=== PATIENT | female | born 1970 | race African-American/Black ===

== ENCOUNTER 2020-10-20 21:21 | Emergency (ER) | payer OTHER ==
--- NOTE | 2020-10-20 21:46 | EDM.PDOC ---
ED HPI GENERAL MEDICAL PROBLEM - General Chief Complaint: Upper Extremity Injury/Pain Stated Complaint: INJURED PINKY FINGER ON RIGHT HAND Time Seen by Provider: 10/20/20 21:32 Source of Information: Reports: Patient History Limitations: Reports: No Limitations - History of Present Illness INITIAL COMMENTS - FREE TEXT/NARRATIVE: Mrs. Norman is a very pleasant 50-year-old woman who now presents to the ED after her right fifth finger was crushed in a bar glass doorway that she was closing while at work around 20:45 tonight. She has pain and swelling to the finger. She denies a prior right fifth finger injury. She is otherwise uninjured. The patient placed her finger in an ice pack prior to coming to the ED, but did not take any hits-nyf-[id number] medications. Here in the ED, the patient's initial BP is found to be slightly elevated at 142/93, otherwise, she is hemodynamically stable, afebrile, saturating 100% on room air. Other than sarah's right fifth finger injury, the patient denies having a recent fever, chills, sore throat, ear pain, nasal or sinus congestion, cough, dyspnea, chest pain, palpitations, nausea, vomiting, constipation, diarrhea, abdominal pain, urinary symptoms, recent weight gain or weight loss, recent bloody bowel movements or black bowel movements, recent joint aches, headaches, or rashes. The patient's PCP is Claudia Hartman NP. She has not received an influenza vaccine this season, and declined an offer to receive one here in the ED. 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 ED EXAM, GENERAL - Physical Exam Exam: See Below Exam Limited By: No Limitations General Appearance: Alert, WD/WN, No Apparent Distress Extremities: Other (There is modest swelling to the right fifth finger, primarily to the radial aspect of the PIP joint, although there is mild swelling to the finger distal to the PIP joint, as well. No significant tenderness to palpation. The patient is able to flex and extend the finger fully, with good strength. Neurovascular status of the right upper extremity is intact.) Course - Vital Signs Last Recorded V/S: Last Vital Signs Temp 36.3 C 10/20/20 21:29 Pulse 83 10/20/20 21:29 Resp 20 10/20/20 21:29 BP 142/93 H 10/20/20 21:29 Pulse Ox 100 10/20/20 21:29 - Orders/Labs/Meds Orders: Active Orders 24 hr Category Date Time Status Fingers Fifth Digit Rt F9 [CR] Stat Exams 10/20/20 21:40 Taken - Re-Assessments/Exams Free Text/Narrative Re-Assessment/Exam: 10/20/20 21:41 As above, the patient's right fifth finger was crushed in a bar glass doorway around 20:45 tonight. She presents with swelling and pain primarily to the PIP joint, although some pain to the distal finger, as well. Good strength to both flexion and extension of the finger. My suspicion for fracture is low, but I have ordered x-rays to be certain. The patient declined an offer for pain medication. 10/20/20 22:31 3-view radiographs of the right (note that the radiographs are marked as left) fifth finger appear to be grossly normal, with no fracture or dislocation identified. Formal read per the Radiologist pending. 10/20/20 22:37 X-ray results discussed with the patient and her . The patient confirmed that it was her right hand that was x-rayed. Since there is no fracture, she does not need the finger to be splinted. I am recommending ice and ibuprofen. I will write a note for her to have limited use of her left hand the next few days. Departure - Departure Time of Disposition: 22:39 Disposition: Home, Self-Care 01 Condition: Good Clinical Impression: Contusion of right little finger - Discharge Information *PRESCRIPTION DRUG MONITORING PROGRAM REVIEWED*: Not Applicable *COPY OF PRESCRIPTION DRUG MONITORING REPORT IN PATIENT GUS: Not Applicable Referrals: Claudia Hartman NP [Primary Care Provider] - Forms: ED Department Discharge, ED Return to Work/School Form Additional Instructions: You were seen in the emergency room after your right pinky finger got slammed in a glass case door at work. Work-up in the ER included x-rays of your right pinky finger, which returned normal, with no broken bones or dislocations seen. Based on your history, physical exam, and ER x-rays, you have most likely c ontused (bruised) your right pinky finger. We recommend that you apply an ice pack to your right pinky finger for 10 to 15 minutes, 5 times a day, for the next few days, to help minimize swelling. You may take [id number] ibuprofen, 2 to 3 tablets (400 to 600 mg) up to every 8 hours, with food, as needed for discomfort. A note for work to have limited use of your right hand has been provided to you. If any other problems, please do not hesitate to return to the ER. Sepsis Event Note (ED) - Evaluation Sepsis Screening Result: No Definite Risk - Focused Exam Vital Signs: Vital Signs Temp Pulse Resp BP Pulse Ox 10/20/20 21:29 36.3 C 83 20 142/93 H 100 - My Orders Last 24 Hours: My Active Orders 10/20/20 21:40 Fingers Fifth Digit Rt F9 [CR] Stat - Assessment/Plan Last 24 Hours: My Active Orders 10/20/20 21:40 Fingers Fifth Digit Rt F9 [CR] Stat
--- NOTE | 2020-10-21 10:23 | CR ---
Left fifth finger: 3 views of the left fifth finger were obtained. Comparison: No previous study. Joint spaces are fairly well maintained. No acute fracture, dislocation or other bony abnormality is appreciated. Impression: 1. No acute osseous finding is seen on left fifth finger study. Diagnostic code #1
== END 2020-10-20 22:48 | disposition home or self-care (01) ==
LOC: JD.ED 21:21
DX: S60.051A Contusion of right little finger without damage to nail, initial encounter (principal); E03.9 Hypothyroidism, unspecified; Z79.899 Other long term (current) drug therapy; W23.0XXA Caught, crushed, jammed, or pinched between moving objects, initial encounter
CPT/HCPCS: 73140-26-F9; 73140-F9; 99282; 99283